=== PATIENT | female | born 1975 | race Caucasian/White ===

== ENCOUNTER 2022-10-22 13:20 | Emergency (ER) | payer OTHER, SELFPAY ==
--- NOTE | 2022-10-22 13:22 | ECG_ITS ---
Measurements Intervals [place] Rate: 87 P: 83 KS: 159 QRS: 96 QRSD: 92 T: 51 QT: 351 QTc: 425 Interpretive Statements SINUS RHYTHM WITH SINUS ARRHYTHMIA RIGHT ATRIAL ENLARGEMENT [0.3mV P WAVE] POSSIBLE LEFT ATRIAL ENLARGEMENT [-0.1mV P WAVE IN V1/V2] RIGHT AXIS DEVIATION [QRS AXIS > 90] NO PREVIOUS ECG AVAILABLE FOR COMPARISON Electronically Signed On 10-22-2022 15:05:15 [employer] by Ej Goldberg M.D.
[2022-10-22 13:30] VITALS: BP 118/71; PULSE 92; RESP 18; TEMP 36.7; O2SAT 100
[2022-10-22 13:51] LABS: INR 0.9
[2022-10-22 13:52] LABS: Alanine Aminotransferase 25 U/L (6-35); Albumin Level 4.3 g/dL (3.5-5.1); Alkaline Phosphatase 55 U/L (38-126); Anion Gap 5 mmol/L (8-16); Aspartate Amino Transferase 39 U/L (14-36); Bilirubin,Total 0.5 mg/dL (0.2-1.3); Blood Urea Nitrogen 12 mg/dL (7-17); Carbon Dioxide 29 mmol/L (22-30); Chloride 103 mmol/L (98-107); Estimated CRCL calculation 74 ml/min; Estimated Glomerular Filt Rate > 60; Glucose 100 mg/dL (65-110); Partial Thromboplastin Time 25.8 SECONDS (22.3-36.8); Potassium 4.2 mmol/L (3.4-5.0); Sodium 137 mmol/L (137-145)
[2022-10-22 13:54] LABS: Basophils Percent Auto 0.5 % (0.2-1.2); Eosinophils Absolute Auto 0.1 K/mm3 (0-0.3); Eosinophils Percent Auto 1.9 % (0-4.4); Hematocrit 40.1 % (37.0-47.0); Hemoglobin 13.3 g/dL (12.0-15.0); Immature Granulocyte Absolute 0.01 K/mm3 (0.00-0.031); Immature Granulocyte Percent A 0.3 % (0-0.5); Lymphocytes Absolute Auto 0.95 K/mm3 (0.9-3.2); Lymphocytes Percent Auto 25.7 % (18.3-44.2); Mean Corpuscular HGB Conc 33.2 g/dl (32-36); Mean Corpuscular Volume 90.5 fl (80-100); Mean Platelet Volume 10.2 fl (7.4-10.4); Monocytes Absolute Auto 0.3 K/mm3 (0.1-0.6); Monocytes Percent Auto 9.2 % (2.6-8.5); Neutrophils Absolute Auto 2.3 K/mm3 (1.3-6.7); Neutrophils Percent Auto 62.4 % (45.5-73.1); Platelet Count Result 161 k/mm3 (150-375); Red Blood Count 4.43 M/mm3 (4.2-5.4); Red Cell Distribution Width 12.2 % (11.5-14.5); White Blood Count 3.7 K/mm3 (4.5-10.0)
[2022-10-22 14:03] LABS: Troponin I < 0.012 ng/mL (0.000-0.034)
--- NOTE | 2022-10-22 15:52 | ED.ARRPALP ---
HPI - Arrhythmia/Palpitations General Chief Complaint: Arrhythmia/Palpitations Stated Complaint: heart palpitations Time Seen by Provider: 10/22/22 15:09 Source: patient Mode of arrival: ambulatory Limitations: no limitations History of Present Illness HPI narrative: 47-year-old with a history of anxiety here with complaints of palpitations for past 1 week. She is feels her heart is pacing however her heart rate is in 60s. She denies any chest pain or shortness of breath. She states she has been taking her anxiety medication for last 12 years. However for the past 1 week she states she was stressed out with [employer] and would be joining [employer] program. She presently denies any chest pain. No history of fever or chills. complaint: heart racing Onset (ago): week(s) (1) Duration: intermittent Severity: moderate Associated symptoms: denies other symptoms Related Data Home Medications Medication Instructions Recorded Confirmed vilazodone 40 mg tablet (Viibryd) 40 mg PO DAILY 07/06/22 10/12/22 Allergies Allergy/AdvReac Type Severity Reaction Status Date / Time ibuprofen Allergy Unknown Swelling Verified 10/12/22 13:38 Penicillins Allergy Unknown RASH Unverified 10/12/22 13:38 amphetamine [From Adderall] AdvReac Other Verified 10/12/22 13:38 dextroamphetamine AdvReac Other Verified 10/12/22 13:38 [From Adderall] Review of Systems Review of Systems: All systems reviewed & are unremarkable except as noted in HPI and below Constitutional: Constitutional: Reports no additional constitutional complaints Eyes: Eyes: Reports no additional eye complaints ENT: Reports system reviewed and no additional complaints, except as documented Cardiovascular: Cardiovascular: Reports as per HPI Respiratory: Respiratory: Reports no additional respiratory complaints Gastrointestinal: Gastrointestinal: Reports no additional gastrointestinal complaints Musculoskeletal: Musculoskeletal: Reports no additional musculoskeletal complaints Integumentary/Breasts: Skin/Breast: Reports system reviewed and no additional complaints, except as docu Neurologic: Reports system reviewed and no additional complaints, except as documented Psychiatric: Psychiatric: Reports as per HPI [facility] Past Medical History Medical History ADD (attention deficit disorder) Anxiety Cellulitis Chronic pain Family History Family History Mother Hypertension Father Hypertension Grandparent Carcinoma of colon Grandparent Diabetes mellitus Social History Social History Smoking status: Never smoker Second hand tobacco smoke exposure: No Alcohol intake: current Drinks per week: 2 Alcohol use details: social Substance use: never Substance use type: does not use Lack of Transportation: No Lack of Food: Never True Current Housing: I Have Housing Concerned About Future Housing: No Difficulty Paying Gas/Electric Bills: No Difficulty Paying for Meds: No Currently Unemployed: No Education: High School Diploma/GED Gender identity (if verbalized by the patient): Female Sexual Orientation (if Verbalized by the Patient): Straight or Heterosexual Exam Narrative: GENERAL: Well-appearing, well-nourished, and in no acute distress. HEAD: Normocephalic, atraumatic. EYES: PERRLA and EOMI. NECK: Supple. CHEST: Clear to auscultation. No respiratory distress. HEART: Regular rate and rhythm. No murmur heard. Normal peripheral pulses. ABDOMEN: Soft, nontender, nondistended, normal active bowel sounds. EXTREMITIES: Normal range of motion. No edema. SKIN: Warm, dry, no rash. NEURO: No focal deficits. Alert and oriented x3. PSYCH: Normal mood and affect. Course Course Emergency Course: Patient remained calm she had no chest pain or shortness of breath I did inf
[2022-10-22 16:52] VITALS: BP 123/65; PULSE 82; RESP 20; TEMP 36.8; O2SAT 98
== END 2022-10-22 16:53 | disposition home or self-care (01) ==
PROVIDERS: Emergency Medicine; Emergency Provider Family Medicine; PCP Physician Assistant Medical
DX: R00.2 Palpitations (principal); F41.9 Anxiety disorder, unspecified; F98.8 Other specified behavioral and emotional disorders with onset usually occurring in childhood and adolescence; R94.31 Abnormal electrocardiogram [ECG] [EKG]
CPT/HCPCS: 36415; 80053; 84484; 85025; 85610; 85730; 93005; 99284

== ENCOUNTER 2023-04-15 09:00 | Outpatient (NON) | payer OTHER, SELFPAY | END 2023-04-15 09:01 | disposition home or self-care (01) | LOC: ANHLAB 04-18 10:08 | PROVIDERS: PCP Physician Assistant Medical; Visit Provider Obstetrics & Gynecology | DX: N92.1 Excessive and frequent menstruation with irregular cycle (principal) | CPT/HCPCS: 88305 ==

== ENCOUNTER 2023-04-15 09:10 | Day surgery (SDC) | payer OTHER, SELFPAY ==
[2023-03-29 11:22] VITALS: BMI 27.6
[2023-03-30 11:48] VITALS: BMI 19.8
--- NOTE | 2023-04-15 08:57 | PM.IMHP ---
H&P: HPI History of Present Illness Date/Time: 04/15/23 08:57 Chief Complaint: Bleeding Narrative: 47 y/o with irregular bleeding and an ultrasound exam suggestive of endometrial polyp. Bleeding has not responded well to Provera. Have offered hysteroscopy with D and C. Review of Systems Review of Systems: All systems reviewed & are unremarkable except as noted in HPI and below PMFSH Past Medical History Medical History ADD (attention deficit disorder) Anxiety Cellulitis Chronic pain Family History Family History Mother Hypertension Father Hypertension Grandparent Carcinoma of colon Grandparent Diabetes mellitus Social History Social History Smoking status: Never smoker Second hand tobacco smoke exposure: No Alcohol intake: current Drinks per week: 2 Alcohol use details: occassional Substance use: never Substance use type: does not use Lack of Transportation: No Lack of Food: Never True Current Housing: I Have Housing Concerned About Future Housing: No Difficulty Paying Gas/Electric Bills: No Difficulty Paying for Meds: No Currently Unemployed: No Education: High School Diploma/GED Living arrangements: with family Occupation/Education: occupation Gender identity (if verbalized by the patient): Female Sexual Orientation (if Verbalized by the Patient): Straight or Heterosexual Spiritual care concerns: No Meds Home Medications and Allergies Home Medications Medication Instructions Recorded Confirmed Type vilazodone 40 mg tablet See Rx Instructions .Route 03/25/23 04/15/23 Rx .COMPLEX #90 tabs medroxyprogesterone 10 mg tablet 10 mg PO DAILY 03/30/23 04/15/23 History methylphenidate HCl 36 mg 36 mg PO BID #30 tabs 04/11/23 04/15/23 Rx tablet,extended release 24 hr (Concerta) Allergies Allergy/AdvReac Type Severity Reaction Status Date / Time ibuprofen Allergy Unknown Swelling Verified 04/15/23 10:51 Penicillins Allergy Unknown RASH Verified 04/15/23 10:51 amphetamine [From Adderall] AdvReac Other Verified 04/15/23 10:51 dextroamphetamine AdvReac Other Verified 04/15/23 10:51 [From Adderall] Exam Const: Orientation/consciousness: patient oriented x3 Other: Well-developed, well-nourished female in no acute distress. Neck: Thyroid: thyroid normal Lymphatic: no lymphadenopathy noted (in neck, axilla or inguinal nodes) Resp: Effort & Inspection: normal respiratory effort Auscultation: clear to auscultation bilaterally Cardio: Rate: regular rate Rhythm: regular rhythm Heart sounds: S1 normal heart sound present and S2 normal heart sound present GI: Other: ABD: Soft, nontender, nondistended. No guarding or rebound tenderness. No hepatosplenomegaly. : General: Yes no CVA tenderness Other: External genitalia: normal female hair distribution, without lesion. Urethral meatus: no lesion, non prolapsed. Bladder: no mass, nontender Vagina: well-estrogenized, without lesion or discharge. No cystocele or rectocele. Cervix: no lesion or discharge. Uterus: small, anteverted, freely mobile, nontender Adnexa: no mass or tenderness. Anus/perineum: no lesions, nontender Back/Spine/Pelvis: Back: no CVA tenderness Skin: General skin exam: normal color and no rashes or lesions noted Neuro: General: patient oriented x3 Extrem: Other: Extremities: nontender with no edema Psych: Mental Status: mental status grossly normal Affect: normal affect Assessment and Plan Assessment and plan (1) Menometrorrhagia: Code(s): N92.1 - Excessive and frequent menstruation with irregular cycle Status: Acute Assessment and Plan: Reviewed medical as well as surgical treatment options. She prefers the latter. Specifically, I
[2023-04-15] MEDS: ACETAMINOPHEN 500 MG TABLET 1000 MG PO (10:56)
[2023-04-15 10:59] VITALS: BP 124/83; PULSE 74; RESP 14; O2SAT 99
--- NOTE | 2023-04-15 11:25 | WPDANESEPPF ---
Anes - Initial Pre Proc Eval Procedure: Operation Date: 04/15/23 12:00 Proposed Procedures p Hysteroscopy Dilation and Curettage - Diego Hale MD Date/Time: 04/15/23 11:25 Surgeon: Diego Hale MD Pre Op Diagnosis: Irregular bleeding Patient Data Age: 47 Gender: F Height: 1.73 m Weight: 56.9 kg Last Vital Signs Pulse 74 04/15/23 10:59 Resp 14 04/15/23 10:59 BP 124/83 04/15/23 10:59 Pulse Ox 99 04/15/23 10:59 O2 Del Method Room Air 04/15/23 10:59 Allergies Allergy/AdvReac Type Severity Reaction Status Date / Time ibuprofen Allergy Unknown Swelling Verified 04/15/23 10:51 Penicillins Allergy Unknown RASH Verified 04/15/23 10:51 amphetamine [From Adderall] AdvReac Other Verified 04/15/23 10:51 dextroamphetamine AdvReac Other Verified 04/15/23 10:51 [From Adderall] Home Medications Medication Instructions Recorded Confirmed Type vilazodone 40 mg tablet See Rx Instructions .Route 03/25/23 04/15/23 Rx .COMPLEX #90 tabs medroxyprogesterone 10 mg tablet 10 mg PO DAILY 03/30/23 04/15/23 History methylphenidate HCl 36 mg 36 mg PO BID #30 tabs 04/11/23 04/15/23 Rx tablet,extended release 24 hr (Concerta) Patient hx anesthesia problems: none Family hx anesthesia problems: none Results Review: All pre-operative results and documents have been reviewed as part of the pre-operative evaluation. [facility] Past Medical History Medical History ADD (attention deficit disorder) Anxiety Cellulitis Chronic pain Family History Family History Mother Hypertension Father Hypertension Grandparent Carcinoma of colon Grandparent Diabetes mellitus Social History Social History Smoking status: Never smoker Second hand tobacco smoke exposure: No Alcohol intake: current Drinks per week: 2 Alcohol use details: occassional Substance use: never Substance use type: does not use Lack of Transportation: No Lack of Food: Never True Current Housing: I Have Housing Concerned About Future Housing: No Difficulty Paying Gas/Electric Bills: No Difficulty Paying for Meds: No Currently Unemployed: No Education: High School Diploma/GED Living arrangements: with family Occupation/Education: occupation Gender identity (if verbalized by the patient): Female Sexual Orientation (if Verbalized by the Patient): Straight or Heterosexual Spiritual care concerns: No Anes - Eval Final PreProcedure Day of Procedure 04/15/23 11:25 Patient weight: normal Heart: regular rate and rhythm Lungs: clear to auscultation Airway: Mallampati scale class II Neurological: alert and oriented Last oral intake: >/= 8 hours ASA classification: II Emergent: no Anesthetic plan: proceed Anesthesia type and monitoring: general GIVS and standard monitoring Results Review: All pre-operative results and documents have been reviewed as part of the pre-operative evaluation. Informed Consent: The patient's anesthetic plan and its attendant risks and benefits were discussed with the patient/family/POA. Questions were solicited and answers provided to the satisfaction of the patient/family/POA.
[2023-04-15] MEDS: LACTATED RINGERS 1,000 ML 30 ML IV CONT (11:29)
--- NOTE | 2023-04-15 11:58 | WPDHPUPDATE1 ---
History and Physical Update Update Date/Time: 04/15/23 11:58 History and Physical has been reviewed, including an updated exam of the patient. There are NO changes in the patient's condition. Risks, benefits, and alternatives have been discussed and questions answered. Patient agrees to proceed with procedure.
[2023-04-15 12:26] VITALS: BP 108/68; PULSE 70; RESP 14; O2SAT 100
--- NOTE | 2023-04-15 12:26 | W.PM.PROC2 ---
Procedure Note - Detailed Date of Procedure 04/15/23 Pre-op Diagnosis Menometrorrhagia Abnormal pelvic ultrasound Post-op Diagnosis Same Procedure Performed Hysteroscopy Dilation and sharp curettage Surgeon Diego Hale MD Anesthesia MAC Findings Thick tissue on posterior endometrial surface. No obvious polyp. Both tubal ostia seen. Description of Procedure The patient was taken to the operating room where she was prepared and draped in the usual sterile fashion in the dorsal lithotomy position. The bladder was drained with a red rubber catheter. A sterile speculum was placed into the vagina. The anterior lip of the cervix was grasped with single-tooth tenaculum. Ten mL of 1% lidocaine was administered in a paracervical block. The cervix was then gently dilated using Hegar dilators until a 7 mm dilator could be passed. Hysteroscopy was performed using sterile saline as a distention medium. Findings are as noted above. Sharp curettage was then performed, and endometrial curettings were collected on a Telfa pad and passed off to be sent to pathology. Hemostasis was excellent. Sponge, lap, needle and instrument counts were correct. The patient was awakened and taken to the recovery room in stable condition. I was present and scrubbed through the entire procedure. Estimated Blood Loss 10 Drains No Packing No Pathology Yes (Endometrial currettings) Complications None Condition Stable Disposition PACU
[2023-04-15] MEDS: LIDOCAINE HCL 1% LOCAL INJ 20 ML VIAL 10 ML INFILTRATE (12:34)
[2023-04-15 12:36] VITALS: BP 112/65; PULSE 73; RESP 14; O2SAT 99
--- NOTE | 2023-04-15 12:38 | WPDANESPN ---
Anes - Prog Note Post-Op Date/Time: 04/15/23 12:38 Cardiovascular status: normal Respiratory status: normal Airway patency: baseline Mental status: baseline Post-Op hydration status: normal Vital Signs: Last Vital Signs Pulse 70 04/15/23 12:26 Resp 14 04/15/23 12:26 BP 108/68 04/15/23 12:26 Pulse Ox 100 04/15/23 12:26 O2 Del Method Room Air 04/15/23 12:26 Pain Score (VAS): 0 I/O: Intake & Output 04/14/23 04/15/23 04/15/23 23:59 07:59 15:59 Intake Total 900 Balance 900 Patient Feedback: Patient satisfied with anesthetic care.
[2023-04-15 12:46] VITALS: BP 107/65; PULSE 70; RESP 12; O2SAT 100
== END 2023-04-15 13:06 | disposition home or self-care (01) ==
PROVIDERS: PCP Physician Assistant Medical; Visit Provider Obstetrics & Gynecology
PROC: 0U5B8ZZ Destruction of Endometrium, Via Natural or Artificial Opening Endoscopic (ICD-10-PCS; CPT 58563; principal; 2023-04-15 12:00)
DX: N92.1 Excessive and frequent menstruation with irregular cycle (principal)
CPT/HCPCS: 58558